=== PATIENT | male | born 1950 | race Caucasian/White ===

== ENCOUNTER 2016-08-14 11:02 | Emergency (ER) | payer OTHER ==
[~2016-08-14] VITALS: Ht 188 cm; Wt 118.6 kg
[~2016-08-14 11:02] MED LIST: ASPI81TA28 PO; HYDR25TA4 PO; MULT-260 PO; OMEP40CA36 PO
[2016-08-14 11:05] VITALS: TEMP 36.9; Ht 188 cm; Wt 118.6 kg
[2016-08-14 11:14] VITALS: O2SAT 97
[2016-08-14] MEDS ORDERED: MULT-513 PO (11:33)
[2016-08-14] MEDS ORDERED: OMEP40CA41 PO (11:33)
[2016-08-14] MEDS ORDERED: SODIUM CHLORIDE 0.9% 1000ML 500 ML IV STA (11:51)
--- NOTE | 2016-08-14 12:00 | EMERGENCY ROOM VISIT NOTE ---
History Report prepared by Vy: Gwendolyn Pagan Under the Supervision of: Dr. Hiro Watt M.D. First contact with patient: 11:38 Chief Complaint: IRREGULAR HEARTBEAT Stated Complaint: FLUTTER OF HEART, OFF AND ON Nursing Triage Summary: Triage note: Pt ambulatory to triage. Pt reports "i think i am in atrial flutter i was in and out of it all day yesterday and for the past 2 weeks i have been short of breath and lightheaded. " History of Present Illness The patient is a 66 year old male who presents to the Emergency Room with complaints of an intermittent irregular heartbeat for the past three weeks. The patient notes that since 1986 he has had a history of atrial fibrillation. He states that he typically always converts on his own, denying being on any current beta-blockers, or anti-coagulants. The patient states that he was previously on a beta-jorge luis when he was first diagnosed with atrial fibrillation. He states that he takes aspirin daily. The patient states that he saw cardiology several years ago, noting that his last stress test was four years ago. The patient additionally notes that he becomes short of breath with each episode, but denies any chest pain. He states that he has been feeling lightheaded. The patient states that he noticed that his atrial fibrillation began yesterday around noon, and states that it persisted until he went to bed. Source of History: patient Onset: three weeks ago Position: other (global) Quality: other (irregular heartbeat) Timing: intermittent Associated Symptoms: + SOB, No chest pain Note: Associated Symptoms: lightheaded Review of Systems See HPI for pertinent positives & negatives. A total of 10 systems reviewed and were otherwise negative. Past Medical & Surgical Medical Problems: (1) Diabetes (2) HTN (hypertension) Surgical Problems: (1) Hx of cataract surgery Family History Diabetes mellitus FHx: cancer FHx: gallbladder disease FHx: heart disease Hypertension Kidney disease Kidney stones Seizures Social History Smoking Status: Never Smoker Marital Status: Housing Status: lives with family Occupation Status: retired Current/Historical Medications Scheduled Aspirin (Aspirin Ec), 81 MG PO DAILY Hydrochlorothiazide (Hctz), 25 MG PO DAILY Metoprolol Tartrate (Lopressor) (Lopressor), 25 MG PO BID Multivitamins/Minerals (Mvi With Minerals), 1 TAB PO DAILY Omeprazole (Prilosec), 40 MG PO DAILY Allergies Coded Allergies: No Known Allergies (Unverified , 08/14/16) Physical Exam Vital Signs Date Time Temp Pulse Resp B/P Pulse Ox O2 Delivery O2 Flow Rate FiO2 08/14/16 16:08 20 139/93 08/14/16 16:04 70 97 Room Air 08/14/16 14:38 79 18 131/88 98 Room Air 08/14/16 13:49 68 08/14/16 13:07 67 16 134/94 98 Room Air 08/14/16 11:18 110 145/94 96 Room Air 08/14/16 11:15 114 08/14/16 11:14 97 Room Air 08/14/16 11:05 36.9 94 18 129/92 95 Room Air Physical Exam GENERAL: Patient is in no acute distress. HEENT: No acute trauma, normocephalic atraumatic, mucous membranes moist, no nasal congestion, no scleral icterus. NECK: No stridor, no adenopathy, no meningismus, trachea is midline. LUNGS: Clear to auscultation bilaterally, no wheeze, no rhonchi, breath sounds equal. HEART: Without murmurs gallops or rubs, regular rate and rhythm. ABDOMEN: Soft, nontender, bowel sounds positive, no hernias, no peritonitis. EXTREMITIES: No cyanosis or edema, full range of motion of all the joints without pain or difficulty, no signs for acute trauma. NEUROLOGIC: Oriented x 3, no acute motor or sensory deficits, no focal weakness. SKIN: No rash, no jaundice, no diaphoresis. Medical Decision & Procedures ER Provider Diagnostic Interpretation: X-ray results as stated below per interpretation by me and the radiologist: CHEST ONE VIEW PORTABLE HISTORY: Atypical CHEST PAIN COMPARISON: Chest 12/16/2015. FINDINGS: The lungs are clear. Cardiac silhouette is normal in size. No pleural effusions. No pneumothorax. Old, healed left-sided rib fractures. IMPRESSION: No acute process. Electronically signed by: Ari Ramos M.D. 08/14/2016 1:36 PM Dictated Date/Time: 08/14/2016 1:35 PM Laboratory Results 08/14/16 11:19 08/14/16 11:19 Test 08/14/16 11:19 Red Blood Count 5.16 M/uL (4.7-6.1) Mean Corpuscular Volume 85.3 fL (80-100) Mean Corpuscular Hemoglobin 30.6 pg (25-34) Mean Corpuscular Hemoglobin Concent 35.9 g/dl (32-36) RDW Standard Deviation 38.7 fL (36.4-46.3) RDW Coefficient of Variation 12.5 % (11.5-14.5) Mean Platelet Volume 10.4 fL (7.4-10.4) Prothrombin Time 11.0 SECONDS (9.0-12.0) Prothromb Time International Ratio 1.0 (0.9-1.1) Activated Partial Thromboplast Time 26.6 SECONDS (21.0-31.0) Partial Thromboplastin Ratio 1.0 Anion Gap 12.0 mmol/L (3-11) Est Creatinine Clear Calc Drug Dose 65.4 ml/min Estimated GFR () 55.0 Estimated GFR (Non- 47.5 BUN/Creatinine Ratio 16.7 (10-20) Calcium Level 9.1 mg/dl (8.5-10.1) Magnesium Level 2.2 mg/dl (1.8-2.4) Total Bilirubin 0.5 mg/dl (0.2-1) Aspartate Amino Transf (AST/SGOT) 21 U/L (15-37) Alanine Aminotransferase (ALT/SGPT) 32 U/L (12-78) Alkaline Phosphatase 75 U/L (45-117) Troponin I < 0.015 ng/ml (0-0.045) Total Protein 8.0 gm/dl (6.4-8.2) Albumin 4.2 gm/dl (3.4-5.0) Globulin 3.8 gm/dl (2.5-4.0) Albumin/Globulin Ratio 1.1 (0.9-2) Thyroid Stimulating Hormone (TSH) 3.280 uIu/ml (0.300-4.500) Laboratory results reviewed by me. Medications Administered Medications (Trade) Dose Ordered Sig/Gi Route Start Time Stop Time Status Last Admin Dose Admin Sodium Chloride (Nss 1000ml) 500 ml @ 999 mls/hr Q31M STAT IV 08/14/16 11:51 08/14/16 12:21 DC 08/14/16 11:56 999 MLS/HR Metoprolol Tartrate (Lopressor Tab) 25 mg NOW STAT PO 08/14/16 15:54 08/14/16 15:56 DC 08/14/16 16:09 25 MG ECG Indication: other (irregular heartbeat) Rate (beats per minute): 76 Rhythm: normal sinus Findings: no acute ischemic change, no ectopy ED Course 1139: The patient was evaluated in room B3B. A complete history and physical exam was performed. 1151: Ordered Sodium Chloride 500 ml @ 999 mls/hr IV. 1340: I reevaluated the patient and he has had no further episodes of atrial fibrillation. I updated him on his exam findings. 1355: I discussed the patients case with Dr. Beebe, Cardiology. He states that he will come by and see the patient. He would like the patient to have an echocardiogram. 1358: I reevaluated the patient and he is doing well. I updated him on the treatment plan. 1554: I rediscussed the patients case with Dr. Beebe, Cardiology. He states that the patient can be discharged home, started on Metoprolol 25 mg, BID. He states that he will set up an out-patient stress test for the patient and further follow up. 1554: Ordered Lopressor Tab 25 mg PO. 1558: I reevaluated the patient and he is doing well. I discussed the exam findings with him and I discussed the treatment plan. He verbalized complete understanding and agreement. He is ready to go home. Medical Decision The patient is a 66 year old male who presents to the ED with complaints of irregular heartbeat. Differential diagnoses considered include intermittent Afib, CHF, anemia, pneumonia, IL, thyroid disorder. The patient presents with what sounds like intermittent atrial fibrillation. Right now, he is comfortable. He did have a short bout of what seemed like atrial fibrillation on the monitor during my evaluation, it quickly resolved and did not recur. There is no leukocytosis or concerning anemia. No significant electrolyte abnormality, kidney failure or hepatitis. The patient appears to be in a euthyroid state. Chest x-ray does not show pneumonia, significant cardiomegaly or CHF. EKG shows a normal sinus rhythm, no acute ischemia. Cardiac enzyme testing times one is not consistent with acute cardiac injury. I spoke with the on-call crester, Dr. Beebe. The patient was seen in this ER by Dr. Beebe. A cardiac echo was performed. The patient is being discharged on metoprolol twice a day, he will be followed up by cardiology as an outpatient. He was given 1 dose of oral metoprolol while in the ER, he also received a small IV saline bolus. He was encouraged to return for any worsening symptoms or any persistent chest pain/dyspnea. Consults Time Called: 1203 Consulting Physician: Dr. Beebe Returned Call: [phone] I discussed the patients case with Dr. Beebe, Cardiology. He states that he will come by and see the patient. He would like the patient to have an echocardiogram. Impression Primary Impression: Atrial fibrillation Additional Impression: Shortness of breath Scribe Attestation The scribe's documentation has been prepared under my direction and personally reviewed by me in its entirety. I confirm that the note above accurately reflects all work, treatment, procedures, and medical decision making performed by me. Departure Information Dispostion Home / Self-Care Prescriptions Metoprolol Tartrate (Lopressor) (Lopressor) 25 Mg Tab 25 MG PO BID, #30 TAB 2 Refills Prov: Hiro Watt M.D. 08/14/16 Referrals Bk Velarde M.D. (PCP) Forms HOME CARE DOCUMENTATION FORM, IMPORTANT VISIT INFORMATION Patient Instructions My [facility] Additional Instructions lopressor 2x per day see cardiology as scheduled return for worsening symptoms Problem Qualifiers
[2016-08-14 12:04] LABS: MEAN CELL VOLUME 85.3 fL (80-100); MEAN CORPUSCULAR HEMOGLOBIN 30.6 pg (25-34); MEAN CORPUSCULAR HGB CONC 35.9 g/dl (32-36); MEAN PLATELET VOLUME 10.4 fL (7.4-10.4); PLATELET COUNT 207 K/uL (130-400); RED BLOOD COUNT 5.16 M/uL (4.7-6.1); WHITE BLOOD COUNT 7.11 K/uL (4.8-10.8)
[2016-08-14 12:17] LABS: ALT/SGPT 32 U/L (12-78); BLOOD UREA NITROGEN 25 mg/dl (7-18); BUN/CREATININE RATIO 16.7 (10-20); CALCIUM 9.1 mg/dl (8.5-10.1); CARBON DIOXIDE 24 mmol/L (21-32); CHLORIDE 102 mmol/L (98-107); GLUCOSE 152 mg/dl (70-99); MAGNESIUM 2.2 mg/dl (1.8-2.4); POTASSIUM 3.5 mmol/L (3.5-5.1); SODIUM 138 mmol/L (136-145)
[2016-08-14 12:28] LABS: ALB/GLOB RATIO 1.1 (0.9-2); ALKALINE PHOSPHATASE 75 U/L (45-117); AST/SGOT 21 U/L (15-37)
--- NOTE | 2016-08-14 13:37 | DIAGNOSTIC IMAGING REPORT ---
CHEST ONE VIEW PORTABLE HISTORY: Atypical CHEST PAIN COMPARISON: Chest 12/16/2015. FINDINGS: The lungs are clear. Cardiac silhouette is normal in size. No pleural effusions. No pneumothorax. Old, healed left-sided rib fractures. IMPRESSION: No acute process. Electronically signed by: Ari Ramos M.D. 08/14/2016 1:36 PM Dictated Date/Time: 08/14/2016 1:35 PM
--- NOTE | 2016-08-14 15:31 | ECHOCARDIOGRAM REPORT ---
*NOTICE TO RECEIVING LIBERTARIAN AGENCY This information is strictly Confidential and protected under [place] law. [place] law prohibits you from making any further disclosure of this information unless further disclosure is expressly permitted by the written consent of the person to whom it pertains or is authorized by law. A general authorization for the release of medical or other information is not sufficient for this purpose. Hospital accepts no responsibility if the information is made available to any other person, INCLUDING THE PATIENT. Interpretation Summary * Name: MINE IRENE Study Date: 08/14/2016 03:16 PM BP: 145/44 mmHg * Patient Location: .ED HR: 110 * : 1950 (M/d/yyyy) Gender: Male Height: 74 in * Age: 66 yrs Ethnicity: [place] Weight: 261 lb * Ordering Physician: Hiro Watt * Referring Physician: Self, Referred * Performed By: Dorie Emery * * Reason For Study: A-FIB * BSA: 2.4 m2 * -- Conclusions -- * The left ventricle is normal in size. * There is mild concentric left ventricular hypertrophy. * The left ventricular wall motion is normal. * Left ventricular systolic function is normal. * Ejection Fraction = 65-70%. * There is mild mitral regurgitation. Procedure Details * A complete two-dimensional transthoracic echocardiogram was performed (2D, M-mode, Doppler and color flow Doppler). Left Ventricle * The left ventricle is normal in size. * There is mild concentric left ventricular hypertrophy. * Ejection Fraction = 65-70%. * Left ventricular systolic function is normal. * The left ventricular wall motion is normal. Right Ventricle * The right ventricle is normal in size and function. Atria * The left atrial size is normal. * Right atrial size is normal. * No ASD detected; PFO is not assessed. Mitral Valve * The mitral valve anatomy is normal. * There is no mitral valve stenosis. * There is mild mitral regurgitation. Tricuspid Valve * The tricuspid valve anatomy is normal. * There is no tricuspid stenosis. * There is trace tricuspid regurgitation. Aortic Valve * The aortic valve is trileaflet. * No hemodynamically significant valvular aortic stenosis. * No aortic regurgitation is present. Pulmonic Valve * The pulmonic valve is not well visualized. Great Vessels * The aortic root is normal size. Pericardium/Pleural * There is no pericardial effusion. Great Vessels * Normal inferior vena cava diameter and respiratory variation suggests normal central venous pressure. Left Ventricular Diastolic Function * Grade I diastolic dysfunction, (abnormal relaxation pattern). MMode 2D Measurements and Calculations IVSd 1.2 cm IVSs 2.3 cm LVIDd 4.2 cm LVIDs 2.3 cm LVPWd 1.7 cm LVPWs 1.8 cm IVS/LVPW 0.71 FS 45.7 % EDV(Teich) 77.3 ml ESV(Teich) 17.5 ml EF(Teich) 77.4 % EDV(cubed) 72.6 ml ESV(cubed) 11.6 ml EF(cubed) 84.0 % % IVS thick 93.4 % % LVPW thick 10.1 % LV mass(C)d 228.1 grams LV mass(C)dI 93.7 grams/m\S\2 LV mass(C)s 207.2 grams LV mass(C)sI 85.1 grams/m\S\2 SV(Teich) 59.9 ml SI(Teich) 24.6 ml/m\S\2 SV(cubed) 61.0 ml SI(cubed) 25.1 ml/m\S\2 ACS 1.4 cm LA dimension 4.3 cm asc Aorta Diam 4.0 cm LVOT diam 1.9 cm LVOT area 2.7 cm\S\2 LVAd ap4 26.4 cm\S\2 LVLd ap4 7.6 cm EDV(MOD-sp4) 73.5 ml EDV(sp4-el) 77.3 ml LVAs ap4 14.6 cm\S\2 LVLs ap4 7.0 cm ESV(MOD-sp4) 25.7 ml ESV(sp4-el) 26.0 ml EF(MOD-sp4) 65.0 % EF(sp4-el) 66.3 % LVAd ap2 32.9 cm\S\2 LVLd ap2 8.5 cm EDV(MOD-sp2) 108.1 ml EDV(sp2-el) 107.8 ml LVAs ap2 17.5 cm\S\2 LVLs ap2 6.8 cm ESV(MOD-sp2) 35.9 ml ESV(sp2-el) 37.9 ml EF(MOD-sp2) 66.8 % EF(sp2-el) 64.8 % LVLd %diff 10.4 % EDV(MOD-bp) 93.2 ml LVLs %diff -2.02 % ESV(MOD-bp) 30.9 ml EF(MOD-bp) 66.9 % SV(MOD-sp4) 47.8 ml SI(MOD-sp4) 19.7 ml/m\S\2 SV(MOD-sp2) 72.1 ml SI(MOD-sp2) 29.6 ml/m\S\2 SV(MOD-bp) 62.3 ml SI(MOD-bp) 25.6 ml/m\S\2 SV(sp4-el) 51.2 ml SI(sp4-el) 21.0 ml/m\S\2 SV(sp2-el) 69.9 ml SI(sp2-el) 28.7 ml/m\S\2 Doppler Measurements and Calculations MV E max hany 61.5 cm/sec MV A max hany 78.1 cm/sec MV E/A 0.79 MV dec time 0.25 sec Ao V2 max 114.7 cm/sec Ao max PG 5.3 mmHg Ao max PG (full) 0.54 mmHg VALE(V,A) 2.5 cm\S\2 VALE(V,D) 2.5 cm\S\2 LV V1 max PG 4.7 mmHg LV V1 mean PG 1.7 mmHg LV V1 max 108.7 cm/sec LV V1 mean 56.8 cm/sec LV V1 VTI 20.8 cm MR max hany 483.6 cm/sec MR max PG 99.0 mmHg SV(LVOT) 55.9 ml SI(LVOT) 23.0 ml/m\S\2 PA V2 max 60.0 cm/sec PA max PG 1.4 mmHg
[2016-08-14] MEDS ORDERED: METOPROLOL TARTRATE 50 MG TAB PO STA (15:54)
[2016-08-14] MEDS ORDERED: METO25TA56 PO (15:59)
[2016-08-14 16:04] VITALS: PULSE 70; O2SAT 97
[2016-08-14 16:08] VITALS: BP 139/93
--- NOTE | 2016-08-14 16:39 | CARDIOLOGY CONSULTATION ---
DATE OF CONSULTATION: 08/14/2016 The patient seen and examined. Chart, medications, telemetry reviewed. REFERRING: Dr. Watt in the Emergency Room. PRIMARY CARE PHYSICIAN: Dr. Velarde. HISTORY OF PRESENT ILLNESS: The patient is a 66-year-old male whose history per discussion with the patient and review of prior records is notable for past atrial proximal flutter, hypertension, but no other significant medical issues per history. He has multiple family members with atrial fibrillation flutter and in the past had been followed by a while on beta-jorge luis for atrial fibrillation flutter while living in [facility]. He had been weaned off medications most recently due to optimal medical therapies, lisinopril had also been discontinued. He has currently been only taking aspirin and hydrochlorothiazide, presents now, however, noting over the past 1-2 weeks of increasing exertional dyspnea, marked fatigue with activities, today was aware of heart pounding intermittently, noted no chest pain. Noted no syncope, noted no tachyarrhythmias that he is aware other than sense of heart beating hard. Notes no fevers, chills or productive cough. Notes no bleeding difficulties. Notes no melena, hematochezia, dysuria or hematuria. He notes no prior history of TIA or stroke. Appetite and weight have been variable, with weight up and down, now approaching high end of patient's normal. Notes no fevers, chills, unexplained infections. Notes no cough, hoarseness, wheeze or hemoptysis. Currently feeling without complaint. ALLERGIES: None. MEDICATIONS: Has described at home were hydrochlorothiazide 25 mg p.o. daily, aspirin 81 mg per day, multivitamin per day, and omeprazole 40 mg p.o. daily. PAST SURGICAL HISTORY: Notable for cataract extraction. FAMILY HISTORY: Positive for heart disease in father at the latter age, atrial fibrillation flutter in multiple siblings. SOCIAL HISTORY: The patient is retired [employer]. He is a nonsmoker, rare alcohol user and is relatively sedentary about home. PAST MEDICAL HISTORY: As above. In addition, the patient carries a history of past GI bleed in 2013. PHYSICAL EXAMINATION: VITAL SIGNS: Heart rate is 70, blood pressure is 139/90. HEENT: Normocephalic, atraumatic. Nares without discharge. Throat was clear. NECK: Supple without thyromegaly, lymphadenopathy, JVD or bruit. LUNGS: Clear to auscultation. CARDIOVASCULAR: Regular. There is no S3 gallop. There is no audible murmur. ABDOMEN: Soft, nontender. EXTREMITIES: Without cyanosis or clubbing. There is no peripheral edema. NEUROLOGIC: The patient is alert and answering questions appropriately. LABORATORY DATA: White cell count 7.1, hemoglobin is 15.8, sodium is 138, potassium is 3.5, chloride is 102, bicarbonate is 24, BUN is 25, creatinine is 1.5. TSH is 3.2, glucose is 152. Laboratory studies as an outpatient in March demonstrated no cholesterol elevation. EKG today demonstrates sinus rhythm with normal tracing. Telemetry reveals short salvos of atrial tachycardia, possible atrial flutter 8-10 beats in duration, occasional ventricular ectopy. Chest x-ray reveals no infiltrate or edema. Echocardiogram today demonstrates mild left ventricular hypertrophy with preserved LV systolic function, grade 1 diastolic dysfunction, mild mitral insufficiency. IMPRESSION: A 66-year-old male with history of past paroxysmal atrial flutter presents with symptoms of a fluttering, heart beating hard and fast intermittently. No significant findings as noted above, though short runs of atrial tachycardia as well as ventricular ectopy were noted on monitor. Discussed findings in detail with the patient given history of exertional dyspnea in the past weeks' will refer for outpatient stress echocardiography. In the interim, we will begin low-dose beta-jorge luis for rhythm and rate control with metoprolol 25 mg twice per day. The patient does not have absolute indications for anticoagulation, past history of GI bleed. Discussed and patient is aware of indications and findings, will follow up with cardiology in the next 2 weeks' time with stress echocardiography in the interim. Will add low dose potassium to the current regimen. I have discussed current medical therapies, in the past he had been on lisinopril. The patient may warrant reduction in hydrochlorothiazide dosing in addition of low dose lisinopril, in addition to beta-jorge luis depending on clinical course. The patient agrees to return with any worsening symptoms or complaints.
[2016-08-15] MEDS ORDERED: POTASSIUM CHLORIDE 10 MEQ TABCR PO SCH (09:00)
== END 2016-08-14 16:18 | disposition home or self-care (01) ==
LOC: C.EDB 11:04
DX: I48.91 Unspecified atrial fibrillation (principal); I10 Essential (primary) hypertension; E11.9 Type 2 diabetes mellitus without complications; Z79.82 Long term (current) use of aspirin